=== PATIENT | male | born 1990 | race Caucasian/White ===

== ENCOUNTER 2020-07-01 17:00 | Emergency (ER) | payer OTHER ==
[~2020-07-01] VITALS: Ht 185.4 cm; Wt 147.4 kg
[2020-07-01] MEDS ORDERED: AUGMENTIN 875-1 EACH PO (17:44)
[2020-07-01 19:23] VITALS: BP 152/78
== END 2020-07-01 19:23 | disposition home or self-care (01) ==
LOC: ER 17:00
DX: L03.012 Cellulitis of left finger (principal); F17.210 Nicotine dependence, cigarettes, uncomplicated; Z91.09 Other allergy status, other than to drugs and biological substances